=== PATIENT | female | born 1965 ===

== ENCOUNTER 2018-02-16 08:47 | Outpatient (CLI) | payer OTHER | END 2018-02-16 08:58 | disposition home or self-care (01) | LOC: TOM 08:47 | DX: E04.1 Nontoxic single thyroid nodule (principal) ==

== ENCOUNTER 2018-03-15 08:31 | Outpatient (CLI) | payer OTHER | END 2018-03-15 08:37 | disposition home or self-care (01) | LOC: SONOGRAMA 08:31 | DX: E04.1 Nontoxic single thyroid nodule (principal) ==

== ENCOUNTER 2023-05-10 10:14 | Outpatient (CLI) | payer OTHER | END 2023-05-10 10:16 | disposition home or self-care (01) | LOC: SONOGRAMA 10:14 | PROVIDERS: ATTEND Pathology Anatomic Pathology | DX: D34 Benign neoplasm of thyroid gland (principal); E04.1 Nontoxic single thyroid nodule; E07.89 Other specified disorders of thyroid ==